=== PATIENT | female | born 1975 | race Two or more races ===

== ENCOUNTER 2017-02-25 19:08 | Emergency (ER) | payer OTHER ==
[~2017-02-25] VITALS: Ht 160 cm; Wt 57.7 kg
[2017-02-25 21:48] VITALS: BP 142/87
== END 2017-02-25 21:59 | disposition home or self-care (01) ==
LOC: EME 19:08 → TRA 19:08
DX: S50.312A Abrasion of left elbow, initial encounter (principal); V47.5XXA Car driver injured in collision with fixed or stationary object in traffic accident, initial encounter; Y92.410 Unspecified street and highway as the place of occurrence of the external cause; G89.29 Other chronic pain; M54.5 Low back pain; F17.200 Nicotine dependence, unspecified, uncomplicated
CPT/HCPCS: 99281; 99285